=== PATIENT | female | born 1965 | race Caucasian/White ===

== ENCOUNTER 2023-07-27 16:56 | Emergency (ER) | payer OTHER ==
[~2023-07-27] VITALS: Ht 170.2 cm; Wt 86.6 kg
[2023-07-27] MEDS: HYDROcodone/acetaminophen 10/325mg tab PO ONE (17:42)
[2023-07-27] MEDS ORDERED: HYDR-3965 PO (18:06)
[2023-07-27 18:21] VITALS: BP 134/88; PULSE 84; RESP 17; TEMP 97.7; O2SAT 97
== END 2023-07-27 18:24 | disposition home or self-care (01) ==
LOC: ER 16:57
DX: S62.334A Displaced fracture of neck of fourth metacarpal bone, right hand, initial encounter for closed fracture (principal); W18.39XA Other fall on same level, initial encounter; Y93.89 Activity, other specified; Y92.89 Other specified places as the place of occurrence of the external cause; Y99.8 Other external cause status
CPT/HCPCS: 29125; 73130; 99283; A4565; A6449